=== PATIENT | female | born 1965 | race Caucasian/White ===

== ENCOUNTER 2022-03-13 10:43 | Emergency (ER) | payer SELFPAY ==
[2022-03-13] MEDS ORDERED: Ketorolac 30 MG/ML SDV IM ONE (10:59)
[2022-03-13] MEDS ORDERED: Acetaminophen 325 MG Tab PO ONE (10:59)
== END 2022-03-13 13:35 | disposition home or self-care (01) ==
LOC: MW.ED 10:43
DX: S83.92XA Sprain of unspecified site of left knee, initial encounter (principal); F17.210 Nicotine dependence, cigarettes, uncomplicated; Z79.899 Other long term (current) drug therapy; W00.9XXA Unspecified fall due to ice and snow, initial encounter
CPT/HCPCS: 73552; 73562; 73590; 96372; 99283; A9270; J1885

== ENCOUNTER 2022-07-19 08:11 | Emergency (ER) | payer MEDICAID ==
[2022-07-19 09:47] LABS: ACETAMINOPHEN <2.0 ug/mL; BLOOD UREA NITROGEN,BUN 9 mg/dL (7.0-18.0); CARBON DIOXIDE,CO2 27.4 mmol/L (21.0-32.0); CHLORIDE,CL 97 mmol/L (98-107); GLUCOSE RANDOM 108 mg/dL (74-106); POTASSIUM,K 3.5 mmol/L (3.5-5.1); SODIUM,NA 134 mmol/L (136-145)
[2022-07-19 09:49] LABS: ESTIMATED GFR 102 mL/min (>60)
== END 2022-07-19 13:23 | disposition home or self-care (01) ==
LOC: MW.ED 08:11
DX: R45.851 Suicidal ideations (principal); R44.0 Auditory hallucinations; F32.9 Major depressive disorder, single episode, unspecified; Z20.822 Contact with and (suspected) exposure to COVID-19
CPT/HCPCS: 36415; 80053; 80143; 80179; 80305-QW; 80307; 81001; 83735; 84443; 85025; 93005; 99285; U0002

== ENCOUNTER 2022-08-10 16:16 | Emergency (ER) | payer MEDICAID | END 2022-08-10 17:06 | disposition home or self-care (01) | LOC: MW.ED 16:16 | DX: Z02.89 Encounter for other administrative examinations (principal); Z72.0 Tobacco use | CPT/HCPCS: 99282; 99283 ==

== ENCOUNTER 2022-11-09 12:48 | Emergency (ER) | payer MEDICAID ==
[2022-11-09] MEDS ORDERED: Propofol 200 MG/20 ML SDV IVPUSH ONE (13:28)
[2022-11-09] MEDS ORDERED: Acetaminophen 325 MG Tab PO ONE (14:24)
[2022-11-09] MEDS ORDERED: Ibuprofen 400 MG Tab PO ONE (14:24)
== END 2022-11-09 19:29 | disposition home or self-care (01) ==
LOC: MW.ED 12:48
DX: S52.501A Unspecified fracture of the lower end of right radius, initial encounter for closed fracture (principal); F17.210 Nicotine dependence, cigarettes, uncomplicated; W18.30XA Fall on same level, unspecified, initial encounter
CPT/HCPCS: 25605; 73070; 73100; 73110; 73120; 99283; A9270; J2704